=== PATIENT | male | born 1965 | race Hispanic/Latino ===

== ENCOUNTER 2020-12-27 11:51 | Day surgery (SDC) | payer OTHER ==
[2020-12-22 10:37] LABS: Absolute Lymphocytes (CBC) 2.1 K/uL (0.7-4.9); Basophils % 0.7 % (0-1.3); Hematocrit 44.4 % (39.6-49.0); Lymphocytes % 24.1 % (15.3-44.8); RBC Red Blood Cell Count 5.18 M/uL (4.33-5.43)
[2020-12-22 10:50] LABS: Protime INR 1.01
[2020-12-22 11:00] LABS: BUN Blood Urea Nitrogen 10 mg/dL (7-18); Bicarbonate 24 mmol/L (21-32); Glucose Level 144 mg/dL (74-106); Potassium 4.5 mmol/L (3.5-5.1); Sodium Level 137 mmol/L (136-145)
--- NOTE | 2020-12-22 11:14 | RAD REPORT ---
EXAM DESCRIPTION: RAD - Chest Pa And Lat (2 Views) - 12/22/2020 10:41 am CLINICAL HISTORY: Pre Op pending hydrocelectomy Chest pain. COMPARISON: Chest Pa And Lat (2 Views) dated 10/15/2019; CHEST SINGLE VIEW dated 12/17/2007 FINDINGS: The lungs are clear. The heart is normal in size. No displaced fractures. IMPRESSION: No acute or concerning finding suspected.
[2020-12-27] MEDS ORDERED: NA CHLORIDE 0.9% 1,000 ML ONE (12:39)
[2020-12-27] MEDS ORDERED: CEFAZOLIN/NS 1gm 1 GM/50 ML BAG ONE (12:39)
[2020-12-27] MEDS ORDERED: BACITRACIN OINTMENT 14 GM TUBE TOP ONE (15:09)
[2020-12-27] MEDS ORDERED: BUPIVACAINE 0.25% PF 30 ML VIAL ONE (15:09)
[2020-12-27] MEDS ORDERED: MIDAZOLAM HCL 2 MG/2 ML INJ ONE (15:59)
[2020-12-27] MEDS ORDERED: ROCURONIUM 50 MG/5 ML VIAL IV ONE (16:22)
[2020-12-27] MEDS ORDERED: propofoL 200 MG/20 ML VIAL IV ONE (16:32)
[2020-12-27] MEDS ORDERED: CEFAZOLIN SODIUM 1 GM/VIAL ONE (16:35)
[2020-12-27] MEDS: HYDROMORPHONE HCL 1 MG/ML INJ ONE ×2 (17:13→17:20)
[2020-12-27] MEDS ORDERED: HYDROCODONE/APAP 5/325 MG TAB PO PRN (17:19)
[2020-12-27] MEDS ORDERED: ONDANSETRON 4 MG/2 ML VIAL ONE (17:22)
[2020-12-27] MEDS ORDERED: MEPERIDINE HCL 25 MG/ML SYR ONE (17:56)
[2020-12-27 18:28] VITALS: BP 137/73; TEMP 97; O2SAT 96
[2020-12-27] MEDS ORDERED: HYDROCODONE/APAP 5/325 MG TAB ONE (18:32)
--- NOTE | 2020-12-28 03:20 | OP ---
Date of Procedure: 12/27/2020 Surgeon: MARKO DICKENS Preoperative Diagnoses: 1.Right hydrocele. 2.Right scrotal pain. Postoperative Diagnoses: 1.Right hydrocele. 2.Right scrotal pain. Principal Procedure: Right Jaboulay hydrocelectomy. Indication For Procedure: Mr. Buenrostro presented to the [facility] with complaints of discomfort associated with a right tense hydrocele. He underwent a scrotal ultrasound that was remarkable for n ormal testis and only the presence of a hydrocele. He was counseled on his options to include aspira tion and sclerosis versus definitive surgical management of the hydrocele and elected the latter appr [facility]. Procedure Note: The patient was consented in the preoperative holding area before being transferred to the operative suite, where general anesthesia was induced. He was given Ancef 2 g IV antimicrobia l prophylaxis and Pneumo boots were provided for DVT prophylaxis. He was placed supine on the operat michelle table and his right hemiscrotum was shaved before being prepped using Betadine in standard fashio n. The case was then begun, identifying a Shelli line incision in the right hemiscrotum medially andres roximately 3 cm in length. 0.25% Marcaine was instilled subcutaneously and an incision using a 15 bobby de was made through the skin. This was deepened through the subcutaneous tissues down to the level o f the dartos fascia. The dartos layers were then divided until the tunica vaginalis was visualized. I then circumferentially dissected the adhesions of the dartos to the tunica vaginalis until the ant erior half of the hydrocele sac was completely freed and exposed. I then decompressed the hydrocele sac by several 100 cc of fluid by inserting an 18-gauge needle. I then was able to deliver the decom pressed sac via the incision with the testicle contained within. I then divided the sac in an anteri or-posterior location and exposed the testis. I then excised a component of the hydrocele sac, leavi ng only sufficient fat to go posteriorly behind the cord structures and the testis. Careful search f or bleeding was undertaken and any bleeding vessels were carefully fulgurated. Then, using a 3-0 Jamel ryl suture, I sewed the hydrocele sac together behind the cord structures in a running and every thir d locking fashion. I then copiously irrigated the scrotum and the hydrocele sac, and again fulgurate d any bleeding vessels visible. I then closed the dartos layers using running 3-0 Vicryl suture and sutured the skin together using running 3-0 chromic dipped in bacitracin. In the end, the cosmetic r esult was excellent, and bacitracin was applied to the incision along with fluff gauze and scrotal gonzalez pport. The patient was then awakened from general anesthesia, transferred to a stretcher, and then t ransferred to the recovery room in good condition. Complications: None. Discharge Disposition: He will follow up in the Urology Clinic in approximately 2 or 3 weeks' time t o make an interval assessment of his scrotum and healing, and this may be done with Stephanie francis. Subsequent followup may be established with me intervally within the next 3 to 6 months as long as he has no ongoing active issues with recurrence of the hydrocele. WILLI/SUBHASH Voice ID: [id number] Report ID: [id number]
== END 2020-12-27 18:29 | disposition home or self-care (01) ==
LOC: OR 11:51
PROVIDERS: ATTEND Urology
PROC: 0VB60ZZ Excision of Right Tunica Vaginalis, Open Approach (ICD-10-PCS; principal; 2020-12-27 14:30)
DX: N43.3 Hydrocele, unspecified (principal); N40.1 Benign prostatic hyperplasia with lower urinary tract symptoms; Z20.822 Contact with and (suspected) exposure to COVID-19
CPT/HCPCS: 93005; 87088; 85025; 87086; 80048; 36415; 85610; 82947; 88302; 85730; 84153; 71046; 55040; U0002; J2704; J2175; J1170; J0690 ×2; J7030; J2405; J2250